=== PATIENT | male | born 1970 | race Caucasian/White ===

== ENCOUNTER 2019-02-15 02:05 | Emergency (ER) | payer OTHER ==
[~2019-02-15] VITALS: Ht 180.3 cm; Wt 105.7 kg
[2019-02-15] MEDS ORDERED: PRINIVIL10 MG PO (02:17)
[2019-02-15] MEDS ORDERED: IBUPROFEN 800800 M1 PO (03:13)
[2019-02-15 03:32] VITALS: BP 118/82
== END 2019-02-15 03:32 | disposition home or self-care (01) ==
LOC: M.ERS 02:05
DX: S82.65XA Nondisplaced fracture of lateral malleolus of left fibula, initial encounter for closed fracture (principal); I10 Essential (primary) hypertension; W01.198A Fall on same level from slipping, tripping and stumbling with subsequent striking against other object, initial encounter; Y92.89 Other specified places as the place of occurrence of the external cause; Y93.89 Activity, other specified; Y99.8 Other external cause status